=== PATIENT | male | born 1945 | race Caucasian/White ===

== ENCOUNTER → 2016-08-02 | Outpatient (CLI) | payer MEDICARE, BC | END | disposition home or self-care (01) | LOC: PCVCCLINIC 10:45 | PROVIDERS: ATTEND Internal Medicine Cardiovascular Disease | DX: I25.10 Atherosclerotic heart disease of native coronary artery without angina pectoris (principal); I25.5 Ischemic cardiomyopathy; R60.9 Edema, unspecified; E78.00 Pure hypercholesterolemia, unspecified; I12.9 Hypertensive chronic kidney disease with stage 1 through stage 4 chronic kidney disease, or unspecified chronic kidney disease; N18.9 Chronic kidney disease, unspecified; E11.22 Type 2 diabetes mellitus with diabetic chronic kidney disease; Z79.82 Long term (current) use of aspirin | CPT/HCPCS: 93005; G0463 ==

== ENCOUNTER → 2017-01-28 | Outpatient (CLI) | payer MEDICARE, BC | END | disposition home or self-care (01) | LOC: PCVCCLINIC 09:50 | PROVIDERS: ATTEND Internal Medicine Cardiovascular Disease | DX: I25.10 Atherosclerotic heart disease of native coronary artery without angina pectoris (principal); I25.5 Ischemic cardiomyopathy; R60.9 Edema, unspecified; I10 Essential (primary) hypertension; Z87.891 Personal history of nicotine dependence; Z79.82 Long term (current) use of aspirin | CPT/HCPCS: 93005; G0463 ==

== ENCOUNTER → 2017-08-20 | Outpatient (CLI) | payer MEDICARE, BC ==
[~2017-08-20] MED LIST: REGADENOSON 0.4 MG/5 ML DISP.SYRIN. IV
== END | disposition home or self-care (01) ==
LOC: PCVCIMAG 08:40
DX: I25.10 Atherosclerotic heart disease of native coronary artery without angina pectoris (principal); I25.5 Ischemic cardiomyopathy; I10 Essential (primary) hypertension; R60.9 Edema, unspecified; E78.5 Hyperlipidemia, unspecified; Z87.891 Personal history of nicotine dependence; Z79.82 Long term (current) use of aspirin; Z79.899 Other long term (current) drug therapy
CPT/HCPCS: 78452; 93017; A9500; G0463; J2785

== ENCOUNTER → 2018-01-27 | Outpatient (CLI) | payer MEDICARE, BC | END | disposition home or self-care (01) | LOC: PCVCCLINIC 12:39 | PROVIDERS: ATTEND Internal Medicine Cardiovascular Disease | DX: I25.10 Atherosclerotic heart disease of native coronary artery without angina pectoris (principal); I10 Essential (primary) hypertension; R60.9 Edema, unspecified; E78.00 Pure hypercholesterolemia, unspecified; Z79.82 Long term (current) use of aspirin; Z87.891 Personal history of nicotine dependence | CPT/HCPCS: 36415; 80061; 93005; 93284; G0463 ==

== ENCOUNTER → 2018-03-31 | Outpatient (CLI) | payer MEDICARE, BC ==
--- NOTE | 2018-03-31 16:19 | PCVCIMAG ---
APPROVED REPORT Study performed: 03/31/2018 13:29:33 EXAM: Comprehensive 2D, Doppler, and color-flow Echocardiogram Patient Location: Echo lab Status: routine BSA: 2.28 HR: 67 bpmBP: 98/59 mmHg Rhythm: Pacemaker Other Information Study Quality: Adequate Risk Factors: Cardiac Risk Factors: HTN Indications Pacemaker CAD ischemic cardiomyopathjy 2D Dimensions IVSd: 11.52 (7-11mm) LVDd: 55.82 mm PWd: 12.89 (7-11mm)Ascending Ao: 40.41 (22-36mm) LVDs: 46.29 (25-40mm) Left Atrium: 47.14 (27-40mm) Aortic Root: 34.52 mm LV Single Plane 4CH: 34.33 % LV Single Plane 2CH: 28.42 % Volumes Left Atrial Volume (Systole) Single Plane 4CH: 68.55 mLSingle Plane 2CH: 79.92 mL LA ESV Index: 35.00 mL/m2 Aortic Valve AoV Peak [place].: 1.27 m/s AO Peak Gr.: 6.41 mmHgLVOT Max P.10 mmHg LVOT Max V: 1.01 m/s Mitral Valve E/A Ratio: 0.5 MV Decel. Time: 250.57 ms MV E Max [place].: 0.52 m/s MV A [place].: 0.98 m/s MV PHT: 72.67 ms IVRT: 107.27 ms Pulmonary Valve PV Peak [place].: 1.05 m/sPV Peak Gr.: 4.45 mmHg Pulmonary Vein P Vein S: 0.22 m/sP Vein A: 0.67 m/s P Vein D: 0.38 m/sP Vein A Dur.: 128.0 msec P Vein S/D Ratio: 0.58 Tricuspid Valve TR Peak [place].: 2.62 m/s TR Peak Gr.: 27.43 mmHg Left Ventricle Left ventricle is mildly dilated. Mild concentric left ventricular hypertrophy. Left ventricular systolic function is severely decreased. LVEF is 30%. Grade I - abnormal relaxation pattern. Right Ventricle The right ventricle is normal size. The right ventricular systolic function is normal. Pacemaker lead is present in the right ventricle. Atria Left atrium is mildly dilated. Right atrium is mildly dilated. Pacemaker lead is present in the right atrium. Aortic Valve The aortic valve is normal in structure. No aortic regurgitation is present. There is no aortic valvular stenosis. Mitral Valve The mitral valve is normal in structure. Mild mitral regurgitation. No evidence of mitral valve stenosis. Tricuspid Valve The tricuspid valve is normal in structure. Mild to moderate tricuspid regurgitation with PAP of 34 mmHg. Pulmonic Valve The pulmonary valve is normal in structure. Trace pulmonic regurgitation. Great Vessels The aortic root is normal in size. The ascending aorta is mildly dilated to 4.0 cm. IVC is normal in size and collapses >50% with inspiration. Pericardium There is no pericardial effusion. <Conclusion> Left ventricle is mildly dilated. Mild concentric left ventricular hypertrophy. Left ventricular systolic function is severely decreased. LVEF is 30%. The right ventricle is normal size. Left atrium is mildly dilated. Right atrium is mildly dilated. Pacemaker lead is present in the right atrium. The aortic valve is normal in structure. Mild mitral regurgitation. Mild to moderate tricuspid regurgitation with PAP of 34 mmHg.
== END | disposition home or self-care (01) ==
LOC: PCVCIMAG 13:16
PROVIDERS: ATTEND Internal Medicine Cardiovascular Disease
DX: I08.1 Rheumatic disorders of both mitral and tricuspid valves (principal); I25.10 Atherosclerotic heart disease of native coronary artery without angina pectoris; I25.5 Ischemic cardiomyopathy; R60.9 Edema, unspecified; R19.00 Intra-abdominal and pelvic swelling, mass and lump, unspecified site; I10 Essential (primary) hypertension; Z79.82 Long term (current) use of aspirin; Z87.891 Personal history of nicotine dependence; Z95.0 Presence of cardiac pacemaker
CPT/HCPCS: 36415; 93005; 93306; G0463

== ENCOUNTER → 2018-04-03 | Outpatient (CLI) | payer MEDICARE, BC ==
--- NOTE | 2018-04-03 09:52 | PCVCIMAG ---
EXAM: ABDOMINAL ULTRASOUND COMPLETE INDICATION: Abdominal pain. Lower extremity swelling. Abdominal bloating. FINDINGS: Gallbladder: Surgical absence of the gallbladder. Liver: Increased echogenicity diffusely throughout the liver with slightly nodular contour the liver having a slightly shrunken appearance with maximum dimension of 12.3 cm. Findings most consistent with diffuse parenchymal disease such as cirrhosis. Bile ducts: No intra or extra hepatic bile duct dilatation. The common bile duct measures 3.9 mm. Pancreas: Difficult to see due to overlying bowel gas. Spleen: Mild splenomegaly measuring 7.0 x 11.5 x 14.5 cm. No focal masses. Right kidney: No hydronephrosis. Length measures 10.6 cm. Left kidney: No hydronephrosis. Length measures 11.0 cm. Inferior vena cava: Normal in size where seen. Aorta: Normal in caliber where seen. IMPRESSION: Large amount of ascites throughout the abdomen and pelvis with morphologic changes in the liver most suggestive of diffuse parenchymal disease such as cirrhosis. Mild splenomegaly. If these findings are new further evaluation with abdominal and pelvic CT with IV contrast is suggested. LOC:OFFICE
--- NOTE | 2018-04-03 09:53 | PCVCIMAG ---
EXAM: VENOUS DUPLEX BOTH LOWER EXTREMITIES INDICATION: Leg pain and swelling. FINDINGS: Right leg: No thrombus in the common femoral, main femoral, or popliteal veins. These veins are compressible with phasic flow. Calf veins are unremarkable where seen. Left leg: No thrombus in the common femoral, main femoral, or popliteal veins. These veins are compressible with phasic flow. Calf veins are unremarkable where seen. IMPRESSION: No evidence of deep venous thrombosis in either lower extremity as detailed above. LOC:OFFICE
== END | disposition home or self-care (01) ==
LOC: PCVCIMAG 08:11
PROVIDERS: ATTEND Internal Medicine Cardiovascular Disease
DX: R18.8 Other ascites (principal); R14.0 Abdominal distension (gaseous); R16.1 Splenomegaly, not elsewhere classified; M79.89 Other specified soft tissue disorders; M79.661 Pain in right lower leg; M79.662 Pain in left lower leg
CPT/HCPCS: 76700; 93970

== ENCOUNTER → 2018-04-27 | Outpatient (CLI) | payer MEDICARE, BC | END | disposition home or self-care (01) | LOC: PCVCCLINIC 09:30 | PROVIDERS: ATTEND Internal Medicine Cardiovascular Disease | DX: Z51.81 Encounter for therapeutic drug level monitoring (principal); Z79.01 Long term (current) use of anticoagulants | CPT/HCPCS: 36415 ==